=== PATIENT | female | born 1990 | race Caucasian/White ===

== ENCOUNTER 2016-09-20 05:47 | Day surgery (SDC) | payer OTHER ==
[~2016-09-20] VITALS: Ht 170.2 cm; Wt 79.4 kg
[2016-09-20] MEDS ORDERED: LR 1,000 ML IV SCH ×2 (06:00→09:30)
[2016-09-20] MEDS ORDERED: PROPOFOL 200 MG/20 ML VIAL As Ordered ONE ×2 (06:58→09:05)
[2016-09-20] MEDS ORDERED: ONDANSETRON 4MG/2ML VIAL (J2405) As Ordered ONE (06:58)
[2016-09-20] MEDS ORDERED: dexameTHASONE 4 MG/ML 1ML VIAL (J1100) As Ordered ONE (06:58)
[2016-09-20] MEDS ORDERED: LIDOCAINE 2% INJ 100 MG/5 ML SDV (FOR ANES.) As Ordered ONE (06:58)
[2016-09-20] MEDS ORDERED: fentaNYL 100 MCG/2 ML INJECTION (J3010) As Ordered ONE (06:59)
[2016-09-20] MEDS ORDERED: MIDAZOLAM INJ 2 MG/2 ML VIAL (J2250) As Ordered ONE (06:59)
[2016-09-20 07:12] LABS: CONTROL LINE UCG INT CTR LINE PRESENT
[2016-09-20] MEDS ORDERED: IBUPROFEN 600 MG TAB PO PRN (09:30)
[2016-09-20] MEDS ORDERED: NORCO, ANEXSIA 5/325MG TABLET (HYDROcodone/ACETAMINOPHEN) PO PRN (09:30)
[2016-09-20] MEDS ORDERED: KETOROLAC 30 MG/ML VIAL (J1885) IV PRN (09:30)
[2016-09-20] MEDS ORDERED: ONDANSETRON 4MG/2ML VIAL (J2405) IV PRN (09:30)
[2016-09-20] MEDS ORDERED: fentaNYL 100 MCG/2 ML INJECTION (J3010) IV PRN (09:30)
[2016-09-20] MEDS ORDERED: PERCOCET 5MG/325MG TAB PO PRN (09:30)
[2016-09-20 10:55] VITALS: BP 110/59
--- NOTE | 2016-09-21 11:03 | RO ---
DATE OF PROCEDURE: 09/20/2016 PREOPERATIVE DIAGNOSIS/INDICATION FOR SURGERY: [place]'s versus urethral diverticula. POSTOPERATIVE DIAGNOSIS: Urethral diverticula. PROCEDURE: Removal of urethral diverticula (this was right-sided) and cystourethroscopy. SURGEON: Krissy Granados MD EVAPORATOR HELPER: ANESTHESIA: Spinal. BRIEF DESCRIPTION OF PROCEDURE AND FINDINGS: Kristin was brought to the operating room where sufficient spinal anesthesia was induced. She was prepped, draped and positioned in the usual sterile fashion. She has a large, more than 3 x 3 cm cystic lesion pointing towards the vulva and examination under anesthesia showed that it was closed but with the scope I could not actually see the urethral communication. So we went to the lateral aspect of it and sized it, started to shell it out and it definitely had a communication around about 7-8 on the urethra. So when cutting out the diverticula in order to get the whole lesion we did have a little opening. This was only approximately 2 mm beyond the urethral meatus. So it was really sort of at the opening. So after we had shelled it out we did some deep closure with the vascular supply. We had the metal catheter in and went ahead and closed that injury to the urethra, which was less than 1/4 of the urethra just in that region and used #3-0 Vicryl for that. Brought the urethral meatus and the urethral together there with approximation with no tension, and then the skin had actually been stretched out so we used that to close the wound space again with a tension free closure after we had gotten deep layer closure for hemostasis using #2-0 deeper and #3-0 at the skin. Having closed the defect over the labia and vaginal skin at the introitus, and having closed the urethra defect from the diverticula connection and having of course removed the diverticula itself, the procedure was then ended. Estimated blood loss probably 100 mL. There was reasonable vascular supplied but was not hard to <<3:03>> once we could get the diverticula out of the way. I just did not want to place too much traction on it last we tear the urethra further. So we did not want to do that, but we did have any trouble controlling that blood supply once we had that diverticula out of the way and did not have to worry about further urethral injury. We did leave a Steele in place. The patient will be continuing with that for a week. Complications: None. CONDITION AND DISPOSITION: Kristin tolerated the procedure well and was recovering in the recovery room in good condition.
== END 2016-09-20 11:09 ==
LOC: M SDC 05:47
PROVIDERS: ATTEND Obstetrics & Gynecology
DX: N36.1 Urethral diverticulum (principal); N99.71 Accidental puncture and laceration of a genitourinary system organ or structure during a genitourinary system procedure; F41.1 Generalized anxiety disorder; M41.9 Scoliosis, unspecified; N02.2 Recurrent and persistent hematuria with diffuse membranous glomerulonephritis
CPT/HCPCS: 53230; 84703; 88305; J0690; J1100; J2250; J2405; J3010

== ENCOUNTER → 2017-01-11 | Outpatient (REF) | payer OTHER | LOC: M SFHCLERA 14:11 | PROVIDERS: ATTEND Nurse Practitioner Family | DX: R30.0 Dysuria (principal) | CPT/HCPCS: 87086; 87491; 87591; G0463 ==

== ENCOUNTER → 2018-07-21 | Outpatient (REF) | payer OTHER ==
[2018-07-21 13:21] LABS: AMORPHOUS SEDIMENT SMALL (NEGATIVE); BACTERIA, URINE AUTO NEGATIVE (NEGATIVE); MUCUS, URINE SMALL (NEGATIVE); RBC, URINE AUTO TNTC /HPF (0-3); SQUAMOUS EPITHELIAL CELL UR AU 5 /HPF (0-6); WBC, URINE AUTO 5 /HPF (0-3)
== END ==
LOC: M LAB REF 12:29
PROVIDERS: ATTEND Internal Medicine Nephrology
DX: R31.9 Hematuria, unspecified (principal)

== ENCOUNTER → 2018-07-25 | Outpatient (CLI) | payer OTHER ==
--- NOTE | 2018-07-25 16:35 | REP ---
REASON: Vesicoureteral reflux. PRIORS: None. FINDINGS: Multiple ultrasonographic images of the right kidney show the right kidney to measure 11.0 x 4.9 x 3.6 cm. 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 The renal cortical echotexture is unremarkable. There are no masses. There is good corticomedullary differentiation. There is no hydronephrosis. There are no perinephric fluid collections. Multiple ultrasonographic images of the left kidney show the left kidney to measure 11.5 x 5.9 x 5.5 cm. 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 The renal cortical echotexture is unremarkable. There are no masses. There is good corticomedullary differentiation. There is no hydronephrosis. There are no perinephric fluid collections. Prevoid urinary bladder volume calculations 351 mL. Postvoid 0. No postvoid residual. IMPRESSION: Incidental partial duplication bilaterally. The examination is otherwise unremarkable. Electronically Signed by Dwight Thomas DO 07/25/2018 04:48 P
== END ==
LOC: M RAD 09:56
PROVIDERS: ATTEND Internal Medicine Nephrology
DX: R31.9 Hematuria, unspecified (principal); N13.70 Vesicoureteral-reflux, unspecified